=== PATIENT | female | born 1940 | race Caucasian/White ===

== ENCOUNTER 2020-08-15 11:13 | Inpatient (IN) | payer OTHER ==
[2020-08-15] MEDS ORDERED: SODIUM CHLORIDE 500 ML IV ONE (11:18)
[2020-08-15 11:37] VITALS: BMI 24.7
[2020-08-15 11:56] LABS: BASO % 0.2 % (0-2.0); EOS % 0.4 % (0-4.5); HEMATOCRIT 40.6 % (32.4-45.2); HEMOGLOBIN 14.1 GM/dL (10.7-15.3); LYMPH % 6.3 % (8-40); MCH 32.3 pg (25.7-33.7); MCHC 34.8 g/dl (32.0-36.0); MEAN CELL VOLUME 92.8 fl (80-96); MEAN PLT VOLUME 9.4 fl (7.5-11.1); MONO % 5.1 % (3.8-10.2); PLATELET COUNT 248 K/MM3 (134-434); RBC 4.38 M/mm3 (3.60-5.2); RDW 12.5 % (11.6-15.6); WHITE BLOOD COUNT 10.2 K/mm3 (4.0-10.0)
[2020-08-15 12:21] LABS: POTASSIUM 3.8 mmol/L (3.5-5.1)
[2020-08-15 12:24] LABS: ALBUMIN 3.9 g/dl (3.4-5.0)
[2020-08-15 12:25] LABS: CALCIUM 9.6 mg/dL (8.5-10.1); MAGNESIUM 2.2 mg/dL (1.8-2.4)
[2020-08-15 12:26] LABS: CREATININE 0.8 mg/dL (0.55-1.3)
[2020-08-15 12:29] LABS: BILIRUBIN,TOTAL 0.6 mg/dL (0.2-1); TOT PROT 7.1 g/dl (6.4-8.2)
[2020-08-15 13:19] LABS: EPI CELLS 14 /uL (0-25.1); HYALINE CASTS 1 /uL (0-3.1); URINE APPEARANCE CLEAR; URINE BACTERIA 72 /uL (0-1359); URINE BILIRUBIN NEGATIVE (NEGATIVE); URINE COLOR YELLOW; URINE GLUCOSE (UA) NEGATIVE (NEGATIVE); URINE KETONE 2+ (NEGATIVE); URINE LEUK ESTERASE TRACE (NEGATIVE); URINE NITRITE NEGATIVE (NEGATIVE); URINE PROTEIN NEGATIVE (NEGATIVE); URINE RBC 5 /uL (0-23.9); URINE UROBILINOGEN 0.2 mg/dL (0.2-1.0); URINE WBC 86 /uL (0-25.8)
[2020-08-15] MEDS ORDERED: ACETAMINOPHEN 325 MG TABLET (FP) PO PRN (13:52)
[2020-08-15] MEDS ORDERED: LACTATED RINGERS SOLUTION 1,000 ML IV SCH (14:00)
[2020-08-15] MEDS: SODIUM CHLORIDE 1,000 ML IV SCH (14:36)
[2020-08-15] MEDS ORDERED: MAGNESIUM SULF 50% (8.12 MEQ/2 ML-1 GM VIAL) IVPB ONE (14:45)
[2020-08-15] MEDS: ROSUVASTATIN CA 20 MG TABLET (FP) PO SCH (21:47)
[2020-08-15] MEDS: FAMOTIDINE 20 MG TABLET PO SCH (21:47)
[2020-08-15] MEDS ORDERED: MELATONIN 5 MG TABLETS PO ONE (22:13)
[2020-08-16] MEDS: LEVOTHYROXINE NA 25 MCG TABLET (FP) PO SCH (06:03)
[2020-08-16] MEDS: SODIUM CHLORIDE 1,000 ML IV SCH ×2 (06:07→14:33)
[2020-08-16 08:16] LABS: BASO % 0.9 % (0-2.0); EOS % 5.9 % (0-4.5); HEMATOCRIT 35.3 % (32.4-45.2); LYMPH % 17.7 % (8-40); MCH 32.1 pg (25.7-33.7); MCHC 34.1 g/dl (32.0-36.0); MEAN CELL VOLUME 93.9 fl (80-96); MEAN PLT VOLUME 9.7 fl (7.5-11.1); NEUT % 66.5 % (42.8-82.8); PLATELET COUNT 197 K/MM3 (134-434); RBC 3.76 M/mm3 (3.60-5.2); RDW 12.6 % (11.6-15.6); WHITE BLOOD COUNT 5.9 K/mm3 (4.0-10.0)
[2020-08-16 08:33] LABS: CALCIUM 8.5 mg/dL (8.5-10.1)
[2020-08-16 08:35] LABS: ALBUMIN 2.9 g/dl (3.4-5.0); BLOOD UREA NITROGEN 8.5 mg/dL (7-18); MAGNESIUM 2.2 mg/dL (1.8-2.4)
[2020-08-16 08:37] LABS: CREATININE 0.6 mg/dL (0.55-1.3); PHOSPHOROUS 2.5 mg/dL (2.5-4.9)
[2020-08-16 08:38] LABS: TOT PROT 5.5 g/dl (6.4-8.2)
[2020-08-16 08:41] LABS: BILIRUBIN,TOTAL 0.5 mg/dL (0.2-1)
[2020-08-16] MEDS ORDERED: ENOXAPARIN NA (PORCINE) 40 MG/0.4 ML DISP.SYRIN SQ SCH (10:00)
[2020-08-16] MEDS ORDERED: DEXTROSE 5%-WATER 100 ML IVPB ONE (13:51)
[2020-08-16] MEDS: CEFTRIAXONE 2 GM in DEXTROSE 5%-WATER 2 GM/100 ML BAG IVPB SCH (14:31)
[2020-08-16] MEDS: HYDROCHLOROTHIAZIDE 25 MG TABLET (FP) PO SCH (14:32)
[2020-08-16] MEDS: FAMOTIDINE 20 MG TABLET PO SCH ×2 (14:33→21:10)
[2020-08-16] MEDS ORDERED: MELATONIN 5 MG TABLETS PO ONE (21:08)
[2020-08-16] MEDS: ROSUVASTATIN CA 20 MG TABLET (FP) PO SCH (21:09)
[2020-08-17] MEDS: LEVOTHYROXINE NA 25 MCG TABLET (FP) PO SCH (06:27)
[2020-08-17] MEDS ORDERED: DEXTROSE 5%-WATER 100 ML IVPB ONE (09:47)
[2020-08-17 09:50] VITALS: BP 137/83; PULSE 87; TEMP 98
[2020-08-17] MEDS: FAMOTIDINE 20 MG TABLET PO SCH (09:51)
[2020-08-17] MEDS: HYDROCHLOROTHIAZIDE 25 MG TABLET (FP) PO SCH (09:51)
[2020-08-17] MEDS ORDERED: ENOXAPARIN NA (PORCINE) 40 MG/0.4 ML DISP.SYRIN SQ SCH (10:00)
[2020-08-17] MEDS: CEFTRIAXONE 2 GM in DEXTROSE 5%-WATER 2 GM/100 ML BAG IVPB SCH (10:45)
[2020-08-17 12:10] LABS: TRANSGLUTAMINASE IGA < 2 U/mL (0-3); TRANSGLUTAMINASE IGG < 2 U/mL (0-5)
[2020-08-18 16:08] LABS: ATYPICAL pANCA <1:20 titer (Neg:<1:20); C-ANCA <1:20 titer (Neg:<1:20)
== END 2020-08-17 13:31 | disposition home or self-care (01) | DRG 392 ==
LOC: JER 11:13 → JERBED 13:41 → J4S 14:26
PROVIDERS: ATTEND Nurse Practitioner Family
PROC: 0DB68ZX Excision of Stomach, Via Natural or Artificial Opening Endoscopic, Diagnostic (ICD-10-PCS; 2020-08-16)
PROC: 0DB98ZX Excision of Duodenum, Via Natural or Artificial Opening Endoscopic, Diagnostic (ICD-10-PCS; principal; 2020-08-16 10:00)
DX: K52.9 Noninfective gastroenteritis and colitis, unspecified (principal); I10 Essential (primary) hypertension; E78.00 Pure hypercholesterolemia, unspecified; E03.9 Hypothyroidism, unspecified; K57.90 Diverticulosis of intestine, part unspecified, without perforation or abscess without bleeding; R91.8 Other nonspecific abnormal finding of lung field; N28.1 Cyst of kidney, acquired; D72.829 Elevated white blood cell count, unspecified; E27.8 Other specified disorders of adrenal gland; K44.9 Diaphragmatic hernia without obstruction or gangrene; K21.00 Gastro-esophageal reflux disease with esophagitis, without bleeding; Z86.010 Personal history of colon polyps; R91.1 Solitary pulmonary nodule
CPT/HCPCS: 36415; 74177-TC; 80053; 81003; 83516; 83520; 83605; 83690; 83735; 84100; 85025; 86140; 86256; 86671; 93005; 93010; 97116-GP; 97161-GP; 99285-25; C9803; Q9967; U0003